=== PATIENT | male | born 1980 | race Caucasian/White ===

== ENCOUNTER 2017-11-01 16:21 | Emergency (ER) | payer MEDICAID ==
--- NOTE | 2017-11-01 16:32 | ED Physician Chart ---
ED Chief Complaint/HPI - Patient Information Date Seen:: 11/01/17 Time Seen:: 16:32 Chief Complaint:: ALCOALHOL INTOXICATION OVER THE PAST 7 DAYS.n History of Present Illness:: THIS 37-YEAR-OLD MALEWAS BROUGHT TO THE EMERGENCY DEPARTMENT HE PATIENT WAS EXTREMELY AGITATEDBY HIS FOR A EVALUATION OF ACUTE ALCOHOL INTOXICATION. THE PATIENT WAS EXTREMELY AGITATED,AND REFUSED TO ANSWER THE QUESTIONS REGARDING THE PRESENT ILLNESS. HE WAS HOSTILE TOWARD THE NURSING STAFFIN AND SECURITYHAD TO BE CALLED.PATIENT WAS GIVEN0.5MILLIGRAMSNEVADA VANDUE TO HISAGITATION. ROUTINE CBC, METABOLIC STUDIES,RENAL AND LFTSWE'RE SENT TO THE LAB. THE PATIENT WAS PASSED ONTO DR. PEDRAZAFOR CONTINUATION OF CAREAND DISPOSITION. Review:: Nurse's Note Reviewed (The reviewed nursing notesWere on a separateTriage form.) ED Review of Systems - Review of Systems General/Constitutional: Other (PATIENT REFUSED TO ANSWER QUESTIONS.) Family Medical History - Family Member Father History Unknown: Yes Ethnicity: Non- Living Status: Still Living ED Physical Exam - Physical Examination General/Constitutional: Awake, Well-developed, well-nourished, Alert, Ambulatory Other Gen/Cons comments:: VERY AGITATEDAND DIFFICULT TO DEAL WITH. Head: Atraumatic Eyes: PERRL Other Eyes comments:: PATIENT UNCOOPERATIVE WITH THE EOM EXAMINATION. Skin: Nl inspection, No ecchymosis, No lymphadenopathy ENMT: External ears, nose nl, Oropharynx nl Neck: Nontender, No bruit, No mass, No stridor Respiratory: Nl effort/Exclusion, Clear to Auscultation, No Wheeze/Rhonchi/Rales Cardio Vascular: RRR, No murmur, gallop, rubs, NL S1 S2 GI: No tenderness/rebounding/guarding, No organomegaly, No hernia, No McBurney tenderness Other GI comments:: NEITHER LIVER OR SPLEEN WERE Palpable. The abdomen was nondistendedAnd bowel sounds were normal.No rebound regarding present. : No CVA tenderness, NL external genitalia Extremities: No tenderness or effusion, Full ROM, normal strength in all extremities, No edema Neuro/Psych: Normal motor strength Other Neuro/Psych comments:: THE PATIENTS GATE WAS UNSTEADYAND HE HAD TO BESUPPORTEDWHEN STANDING. ED Labs/Radiology/EKG Results - Lab Results Results: Laboratory Results - last 24 hr 11/01/17 11/01/17 11/01/17 16:25 16:25 16:25 WBC 9.7 RBC 4.70 Hgb 15.1 Hct 44.2 MCV 94.0 MCH 32.1 H MCHC Differential 34.1 RDW 13.9 Plt Count 172 MPV 7.0 Neutrophils % 46.3 Lymphocytes % 45.9 Monocytes % 6.4 Eosinophils % 1.0 Basophils % 0.4 Sodium 141 Potassium 3.8 Chloride 104 Carbon Dioxide 25.0 Anion Gap 15.8 BUN 7 Creatinine 0.8 Est GFR ( Amer) > 60.0 Est GFR (Non-Af Amer) > 60.0 BUN/Creatinine Ratio 8.8 Glucose 121 H Calcium 8.4 L Total Bilirubin 0.3 AST 185 H ALT 84 H Alkaline Phosphatase 84 Total Protein 6.8 Albumin 4.2 Globulin 2.6 Albumin/Globulin Ratio 1.6 Urine Opiates Screen Urine Methadone Screen Ur Barbiturates Screen Ur Tricyclics Screen Ur Phencyclidine Scrn Amphetamines Screen U Methamphetamines Scrn U Benzodiazepines Scrn U Cocaine Metab Screen U Cannabinoids Screen Ethyl Alcohol 389 H 11/02/17 11/02/17 06:00 06:30 WBC RBC Hgb Hct MCV MCH MCHC Differential RDW Plt Count MPV Neutrophils % Lymphocytes % Monocytes % Eosinophils % Basophils % Sodium Potassium Chloride Carbon Dioxide Anion Gap BUN Creatinine Est GFR ( Amer) Est GFR (Non-Af Amer) BUN/Creatinine Ratio Glucose Calcium Total Bilirubin AST ALT Alkaline Phosphatase Total Protein Albumin Globulin Albumin/Globulin Ratio Urine Opiates Screen NEGATIVE Urine Methadone Screen NEGATIVE Ur Barbiturates Screen NEGATIVE Ur Tricyclics Screen POSITIVE H Ur Phencyclidine Scrn NEGATIVE Amphetamines Screen NEGATIVE U Methamphetamines Scrn NEGATIVE U Benzodiazepines Scrn POSITIVE H U Cocaine Metab Screen NEGATIVE U Cannabinoids Screen NEGATIVE Ethyl Alcohol < 10 LABORATORY INTERPRETATION:THE CBC WAS UNREMARKABLEIN THAT BOTH THE WHITE COUNTIN THE HEMOGLOBIN LEVELWITHIN NORMAL PARAMETERS. METABOLIC STUDIESSHOW THE PATIENTS ELECTROLYTESTO ALL BE WITHIN NORMAL PARAMETERS.RENAL FUNCTION WAS NORMAL.PATIENT'S GLUCOSE WAS MILDLY ELEVATED IN THE 120 RANGE. THE PATIENT'S LIVER FUNCTION STUDIESWE'RE MODERATELY ELEVATEDWITH BOTH THE AST AND A LT INCREASED. ED Assessment - Assessment General Assessment: THE PATIENT WAS PASSED ONTO DR. PEDRAZAFOR FURTHER MANAGEMENTIN DISPOSITION. ED Septic Shock - . Is Septic Shock (SBP<90, OR Lactate>4 mmol\L) present?: No ED Reassessment (Disposition) - Reassessment Reassessment Condition:: Improved - Diagnosis Diagnosis:: ACUTE ALCOHOL INTOXICATION - Patient Disposition Discharge/Transfer:: Home ED Discharge Plan - Patient Disposition Admit/Discharge/Transfer: PT DISCHARGED HOME Condition at Disposition: Stable Instructions: Alcohol Intoxication, [id number]
[2017-11-01 16:49] LABS: % BASOPHILS 0.4 % (0.0-2.0); % LYMPHOCYTES 45.9 % (20.0-50.0); % MONOCYTES 6.4 % (2.0-10.0); % NEUTROPHILS 46.3 % (40.0-80.0); EOSINOPHILE ABSOLUTE 0.1 Th/cmm (0.1-0.4); HEMATOCRIT 44.2 % (41.0-60); HEMOGLOBIN 15.1 gm/dL (12-16); LYMPHOCYTE ABSOLUTE 4.5 Th/cmm (1.5-3.0); MEAN CORPUSCULAR HEMOGLOBIN 32.1 pg (26.0-30.0); MEAN CORPUSCULAR HGB CONC 34.1 pg (28.0-36.0); MONOCYTE ABSOLUTE 0.6 Th/cmm (0.3-1.0); NEUTROPHILE ABSOLUTE 4.5 Th/cmm (1.8-8.0); PLATELET COUNT 172 Th/cmm (150-400); RED CELL DISTRIBUTION WIDTH 13.9 % (11.5-20.0); WHITE BLOOD COUNT 9.7 Th/cmm (4.8-10.8)
[2017-11-01 17:08] LABS: ALB/GLOB RATIO 1.6 (1.0-1.8); ALBUMIN 4.2 gm/dL (4.2-5.5); ALKALINE PHOSPHATASE 84 U/L (34-104); ANION GAP 15.8 (7.0-16.0); BILIRUBIN,TOTAL 0.3 mg/dL (0.3-1.0); BUN - UREA NITROGEN 7 mg/dL (7-25); CALCIUM SERUM 8.4 mg/dL (8.6-10.3); CHLORIDE 104 mEq/L (98-107); CREATININE - SERUM 0.8 mg/dL (0.7-1.3); GFR AFRICAN-AMERICAN > 60.0 ml/min (>90); GFR NON AFRICAN-AMERICAN > 60.0 ml/min; GLUCOSE 121 mg/dL (70-105); POTASSIUM SERUM 3.8 mEq/L (3.5-5.1); SGOT 185 U/L (13-39); SGPT/ALT 84 U/L (7-52); SODIUM SERUM 141 mEq/L (136-145); TOTAL PROTEIN,SERUM 6.8 gm/dL (6.0-8.3)
[2017-11-01] MEDS: Multivitamin Inj 10 ML, Thiamine HCL 100 MG, Magnesium Sulfate 2 GM, Folic Acid 1 MG in... IV ONE (17:11)
[2017-11-01] MEDS ORDERED: Haloperidol Lactate 5 mg/mL 1mL Vial ONE (23:49)
[2017-11-01] MEDS: Haloperidol Lactate 5 mg/mL 1mL Vial IVP ONE (23:56)
[2017-11-02 06:46] LABS: AMPHETAMINE URINE NEGATIVE (NEGATIVE); BARBITURATES URINE NEGATIVE (NEGATIVE); COCAINE METABOLITE QUAL URINE NEGATIVE (NEGATIVE); METHAMPHETAMINES QUAL URINE NEGATIVE (NEGATIVE); PHENCYCLIDINE (PCP) URINE NEGATIVE (NEGATIVE)
[2017-11-02 06:47] LABS: BENZODIAZEPINES QUAL URINE POSITIVE (NEGATIVE); CANNABINOID THC NEGATIVE (NEGATIVE); METHADONE URINE NEGATIVE (NEGATIVE); OPIATES (MORPHINE) QUAL. URINE NEGATIVE (NEGATIVE); TRICYCLICS (TCA) QUAL. URINE POSITIVE (NEGATIVE)
== END 2017-11-02 08:46 | disposition home or self-care (01) ==
LOC: ER 16:21
DX: F10.129 Alcohol abuse with intoxication, unspecified (principal)
CPT/HCPCS: 99284; 96374; 96375; 36415 ×2; 80307; 85025; 80320 ×2; 80053; J2060; J3411; J1630; J3475; J7030; X6598; Z7502